=== PATIENT | male | born 1965 | race Caucasian/White ===

== ENCOUNTER 2018-12-16 09:02 | Emergency (ER) | payer OTHER, SELFPAY ==
[2018-12-16] MEDS ORDERED: Metoclopramide HCl 10 MG/2 ML VIAL ONE (09:18)
== END 2018-12-16 09:42 | disposition home or self-care (01) ==
LOC: MADERS 09:02
DX: R06.6 Hiccough (principal); F17.220 Nicotine dependence, chewing tobacco, uncomplicated
CPT/HCPCS: 96372; 99283; J2765

== ENCOUNTER 2019-09-23 20:49 | Emergency (ER) | payer SELFPAY ==
[2019-09-23 21:17] LABS: #Basophils 0.1 thou/uL (0.0-0.2); #Eosinphils 0.4 thou/uL (0.0-0.7); #Lymphocytes 2.7 thou/uL (1.20-3.40); #Monocytes 0.8 thou/uL (0.11-0.59); #Neutrophils 5.6 thou/uL (1.40-6.50); %Basophils 1.2 % (0.0-1.0); %Eosinophils 4.2 % (0.0-10.0); %Lymphocytes 28.1 % (21.0-51.0); %Monocytes 8.2 % (0.0-10.0); %Neutrophils 58.4 % (42.0-75.0); Hemoglobin 14.5 g/dL (14.0-18.0); Mean Corpuscular HGB CONC 32.7 g/dL (32.0-36.0); Mean Corpuscular Hemoglobin 31.2 pg (27.0-31.0); Mean Corpuscular Volume 95.3 fL (78.0-98.0); Mean Platelet Volume 7.7 fL (7.4-10.4); Platelet Count 168 thou/uL (130-400); Red Blood Cell (RBC) Count 4.66 mill/uL (4.70-6.10); White Blood Cell (WBC) Count 9.6 thou/uL (4.8-10.8)
--- NOTE | 2019-09-23 21:20 | RAD ---
PORTABLE CHEST: 09/23/19 HISTORY: Chest pain. Lung pollock are clear. Heart and mediastinum appear normal. Vascular markings are normal. IMPRESSION: Unremarkable chest. POS: [facility]
[2019-09-23 21:31] LABS: ALT (SGPT) 21 U/L (8-55); AST (SGOT) 21 U/L (5-34); Albumin 4.5 g/dL (3.5-5.0); Alkaline Phosphatase 72 U/L (40-110); Anion Gap 18 mmol/L (10-20); BUN (Urea Nitrogen) 10 mg/dL (8.4-25.7); Bilirubin, Total 0.4 mg/dL (0.2-1.2); Calc. Creatinine Clearance 0 mL/min (70-130); Calcium 9.3 mg/dL (7.8-10.44); Carbon Dioxide 22 mmol/L (22-29); Chloride 104 mmol/L (98-107); Estimated GFR-MDRD 79; Globulin 3.1 g/dL (2.4-3.5); Glucose 99 mg/dL (70-105); Potassium 3.6 mmol/L (3.5-5.1); Protein, Total 7.6 g/dL (6.0-8.3); Sodium 140 mmol/L (136-145)
[2019-09-23] MEDS ORDERED: Aspirin Chewable 81 MG TAB ONE (22:08)
== END 2019-09-23 23:03 | disposition short-term general hospital (02) ==
LOC: MADERS 20:49
DX: R07.2 Precordial pain (principal); F17.220 Nicotine dependence, chewing tobacco, uncomplicated
CPT/HCPCS: 71045; 80053; 83880; 84484; 85025; 93005

== ENCOUNTER 2019-10-29 13:43 | Outpatient (CLI) | payer OTHER ==
[2019-10-29 14:16] LABS: #Basophils 0.1 thou/uL (0.0-0.2); #Eosinphils 0.1 thou/uL (0.0-0.7); #Neutrophils 6.3 thou/uL (1.40-6.50); %Eosinophils 1.5 % (0.0-10.0); %Lymphocytes 20.6 % (21.0-51.0); %Monocytes 10.4 % (0.0-10.0); %Neutrophils 66.5 % (42.0-75.0); Hemoglobin 14.6 g/dL (14.0-18.0); Mean Platelet Volume 8.3 fL (7.4-10.4); Platelet Count 212 thou/uL (130-400); RBC Distribution Width 11.3 % (11.5-14.5); Red Blood Cell (RBC) Count 4.69 mill/uL (4.70-6.10); White Blood Cell (WBC) Count 9.5 thou/uL (4.8-10.8)
[2019-10-29 14:21] LABS: INR-International Normal Ratio 0.9; PTT 25.6 sec (22.9-36.1); Prothrombin Time 12.3 sec (12.0-14.7)
--- NOTE | 2019-10-29 14:27 | RAD ---
THREE VIEWS OF THE LUMBAR SPINE 10/29/19 COMPARISON: None. HISTORY: Back pain with sciatica. FINDINGS: There is mild multilevel lower thoracic disc space narrowing and anterior osteophyte formation. There is disc space narrowing at the lumbosacral junction. Lumbar pedicles are intact on frontal imaging. No acute fracture or dislocation noted. IMPRESSION: No acute osseous abnormality. If there are radicular symptoms, MRI advised. POS: [facility]
[2019-10-29 14:31] LABS: ALT (SGPT) 30 U/L (8-55); AST (SGOT) 21 U/L (5-34); Albumin 4.5 g/dL (3.5-5.0); Alkaline Phosphatase 74 U/L (40-110); Anion Gap 17 mmol/L (10-20); BUN (Urea Nitrogen) 9 mg/dL (8.4-25.7); Bilirubin, Total 0.5 mg/dL (0.2-1.2); Calc. Creatinine Clearance 0 mL/min (70-130); Calcium 9.3 mg/dL (7.8-10.44); Carbon Dioxide 25 mmol/L (22-29); Chloride 101 mmol/L (98-107); Cholesterol 173 mg/dl (< 200 Desired); Estimated GFR-MDRD 65; Globulin 3.3 g/dL (2.4-3.5); Glucose 94 mg/dL (70-105); HDL Cholesterol 87 mg/dL (>60 Neg Risk); LDL Cholesterol, Calculated 71 mg/dL; Potassium 3.7 mmol/L (3.5-5.1); Protein, Total 7.8 g/dL (6.0-8.3); Sodium 139 mmol/L (136-145); Triglycerides 74 mg/dL (Less than 150)
[2019-10-29 14:35] LABS: Bilirubin Negative (Negative); Blood, Urine Small (Negative); Clarity Clear (Clear); Glucose, Urine (Dipstick) Negative (Negative); Leukocyte Negative (Negative); Nitrite Negative (Negative); Protein, Urine (Dipstick) Negative (Neg-Trace); Urobilinogen 0.2 mg/dL (Less than 2)
[2019-10-29 14:50] LABS: Bacteria/HPF Rare-Few HPF (None Seen); RBC/HPF 0-3 HPF (0-3); Squamous Epithelial None Seen HPF (0-3); WBC/HPF None Seen HPF (0-3)
[2019-10-29 22:01] LABS: Hemoglobin A1c 4.8 % (4.0-6.0)
[2019-10-30 01:26] LABS: PSA-Symptomatic (DIAGNOSTIC) 3.11 ng/mL (0-4.0); Vitamin D, 25 Hydroxy 29.8 ng/ml (> 30.0)
== END 2019-10-29 13:44 | disposition home or self-care (01) ==
LOC: MADLAB 13:43
PROVIDERS: ATTEND Family Medicine
DX: Z00.00 Encounter for general adult medical examination without abnormal findings (principal); M54.40 Lumbago with sciatica, unspecified side; R31.29 Other microscopic hematuria
CPT/HCPCS: 36415; 72100; 80053; 80061; 81001; 82306; 83036; 84153; 84443; 85025; 85610; 85730